=== PATIENT | female | born 2000 | race Two or more races ===

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

== ENCOUNTER 2021-05-27 06:20 | Inpatient (IN) | payer OTHER ==
[~2021-05-27] VITALS: Ht 157.5 cm; Wt 86.3 kg
[2021-05-27] MEDS: LACTATED RINGERS 1,000 ML IV SCH ×6 (09:25→23:00)
[2021-05-27] MEDS ORDERED: FENTANYL PF 100 MCG/2ML IVPush PRN (09:30)
[2021-05-27] MEDS ORDERED: TERBUTALINE 1 MG/ML, 1ML IVPush PRN (09:30)
[2021-05-27] MEDS ORDERED: OXYTOCIN 30U/ 0.9% NaCL 500ML 500 ML IV ONE (09:30)
[2021-05-27] MEDS ORDERED: D5%-LACTATED RINGERS 1,000 ML IV SCH (09:30)
[2021-05-27] MEDS ORDERED: CALCIUM CARBONATE 500 MG TAB.CHEW PO PRN ×2 (09:30→23:00)
[2021-05-27] MEDS ORDERED: ONDANSETRON 2MG/ML, 2ML IVPush PRN ×2 (09:30→23:00)
[2021-05-27] MEDS ORDERED: TERBUTALINE 1 MG/ML, 1ML SQ PRN (09:30)
[2021-05-27 09:40] LABS: BASOPHILS % (AUTO) 0 % (0-1); EOSINOPHILS % (AUTO) 0 % (1-7); LYMPHOCYTES % (AUTO) 13 % (22-44); MEAN CORPUSCULAR HEMOGLOBIN 25.4 pg (27.0-34.8); MEAN PLATELET VOLUME 9.4 fL (7.4-10.4); MONOCYTES % (AUTO) 8 % (2-9); NEUTROPHILS % (AUTO) 79 % (42-75); PLATELET COUNT 296 x10^3/uL (130-400); RED CELL DISTRIBUTION WIDTH 15.5 % (9.6-15.2)
[2021-05-27] MEDS ORDERED: LIDOCAINE 1%, 20ML ONE (09:43)
[2021-05-27] MEDS ORDERED: MISOPROSTOL 200 MCG TABLET ONE (09:43)
[2021-05-27] MEDS ORDERED: NEWBORN KIT ONE (09:43)
[2021-05-27] MEDS ORDERED: OXYTOCIN 30U/ 0.9% NaCL 500ML 500 ML ONE (09:43)
[2021-05-27] MEDS ORDERED: FENTANYL PF 100 MCG/2ML ONE ×3 (09:43→21:46)
[2021-05-27 09:51] LABS: MICROSCOPIC INDICATED
[2021-05-27 09:55] VITALS: BP 139/79
[2021-05-27] MEDS ORDERED: PLEASE ENTER HEIGHT AND WEIGHT MC SCH (10:00)
[2021-05-27] MEDS ORDERED: FENTANYL/BUPIV./NS/PF 250 ML EPIDCONT ONE (10:32)
[2021-05-27] MEDS ORDERED: BUPIVACAINE 0.25% ONE (10:33)
[2021-05-27] MEDS ORDERED: OXYTOCIN 30U/ 0.9% NaCL 500ML 500 ML IV PRN (13:00)
[2021-05-27] MEDS ORDERED: METOCLOPRAMIDE 5 MG/ML, 2ML ONE (21:28)
[2021-05-27] MEDS ORDERED: SUCCINYLCHOLINE 20 MG/ML, 10ML ONE (21:29)
[2021-05-27] MEDS ORDERED: OXYTOCIN 10 UNITS/ML, 1ML ONE (21:29)
[2021-05-27] MEDS ORDERED: PROPOFOL 10 MG/ML, 20ML ONE (21:29)
[2021-05-27] MEDS ORDERED: DEXAMETHASONE 4 MG/ML, 1ML ONE (21:29)
[2021-05-27] MEDS ORDERED: ONDANSETRON 2MG/ML, 2ML ONE (21:29)
[2021-05-27] MEDS ORDERED: EPHEDRINE 50 MG/ML, 1ML ONE (21:29)
[2021-05-27] MEDS ORDERED: KETOROLAC 30 MG/1 ML ONE (21:29)
[2021-05-27] MEDS ORDERED: PHENYLEPHRINE 10 MG/ML ONE (21:29)
[2021-05-27] MEDS ORDERED: CEFAZOLIN 1,000 MG ONE (21:29)
[2021-05-27] MEDS ORDERED: CEFAZOLIN PMX 1GM/50ML 50 ML IVPB ONE (21:30)
[2021-05-27] MEDS ORDERED: SODIUM CITRATE/CITRIC ACID 30 ML UDC PO ONE (21:30)
[2021-05-27] MEDS ORDERED: CLINDAMYCIN PMX 900MG/50ML 50 ML IVPB ONE (21:30)
[2021-05-27] MEDS ORDERED: METOCLOPRAMIDE 5 MG/ML, 2ML IV ONE (21:30)
[2021-05-27] MEDS ORDERED: morphine SULFATE/PF 0.5 MG/ML, 10ML ONE (21:58)
[2021-05-27] MEDS: OXYTOCIN 30U/ 0.9% NaCL 500ML 500 ML IV SCH (22:41)
[2021-05-27] MEDS ORDERED: HYDROmorphone 2 MG/ML, 1ML IVPush PRN (23:00)
[2021-05-27] MEDS ORDERED: EPHEDRINE 50 MG/ML, 1ML IVPush PRN (23:00)
[2021-05-27] MEDS ORDERED: MISOPROSTOL 200 MCG TABLET PR PRN (23:00)
[2021-05-27] MEDS ORDERED: OXYcodone/APAP 5/325MG TABLET PO PRN (23:00)
[2021-05-27] MEDS ORDERED: PROMETHAZINE 25 MG/ML, 1ML IV PRN (23:00)
[2021-05-27] MEDS ORDERED: HYDROcodone/APAP 7.5-325MG/15ML UDC PO PRN (23:00)
[2021-05-27] MEDS ORDERED: hydrALAzine 20 MG/ML, 1ML IV PRN (23:00)
[2021-05-27] MEDS ORDERED: MIDAZOLAM 1 MG/ML, 2ML IV PRN (23:00)
[2021-05-27] MEDS ORDERED: LABETALOL 5MG/ML, 20ML IV PRN (23:00)
[2021-05-27] MEDS ORDERED: ACETAMINOPHEN 325 MG TABLET PO PRN (23:00)
[2021-05-27] MEDS ORDERED: MEASLES,MUMPS&RUBELLA VACC/PF 0.5 ML SQ-VACC PRN (23:00)
[2021-05-27] MEDS ORDERED: METOPROLOL 1 MG/ML, 5ML IV PRN (23:00)
[2021-05-27] MEDS ORDERED: ONDANSETRON 2MG/ML, 2ML IV PRN (23:00)
[2021-05-27] MEDS ORDERED: MEPERIDINE/PF 25MG/0.5ML IVPush PRN (23:00)
[2021-05-27] MEDS ORDERED: OXYcodone 5 MG/5 ML ORAL.SOL UDC PO PRN (23:00)
[2021-05-27] MEDS ORDERED: ALBUTEROL SULFATE 2.5 MG/3 ML NPPB PRN (23:00)
[2021-05-27] MEDS ORDERED: FENTANYL PF 100 MCG/2ML IV PRN (23:00)
[2021-05-27] MEDS: OXYcodone/APAP 5/325MG TABLET PO PRN (23:12)
[2021-05-27 23:30] VITALS: BP 121/82
[2021-05-28 04:00] VITALS: BP 106/68
[2021-05-28] MEDS: KETOROLAC 30 MG/1 ML IV SCH ×4 (04:32→22:17)
[2021-05-28] MEDS: LACTATED RINGERS 1,000 ML IV SCH ×6 (07:00→23:00)
[2021-05-28 07:45] VITALS: BP 121/75
[2021-05-28] MEDS: DOCUSATE 100 MG CAPSULE PO PRN ×2 (08:25→20:12)
[2021-05-28] MEDS: PRENATAL VIT/IRON/FA 1 EACH TABLET PO SCH (08:25)
[2021-05-28] MEDS: SIMETHICONE 80 MG CHEW TAB PO PRN (08:28)
[2021-05-28] MEDS: OXYTOCIN 30U/ 0.9% NaCL 500ML 500 ML IV SCH ×2 (09:00→19:00)
[2021-05-28 12:22] VITALS: BP 122/67
[2021-05-28 20:00] VITALS: BP 120/78
[2021-05-28] MEDS: OXYcodone/APAP 5/325MG TABLET PO PRN (20:13)
[2021-05-29] MEDS: OXYcodone/APAP 5/325MG TABLET PO PRN ×2 (00:55→05:45)
[2021-05-29 01:00] VITALS: BP 118/64
[2021-05-29 01:08] LABS: BASOPHILS % (AUTO) 0 % (0-1); EOSINOPHILS % (AUTO) 1 % (1-7); LYMPHOCYTES % (AUTO) 20 % (22-44); MEAN CORPUSCULAR HEMOGLOBIN 25.8 pg (27.0-34.8); MEAN CORPUSCULAR HGB CONC 33.2 g/dL (32.4-35.8); MEAN PLATELET VOLUME 9.2 fL (7.4-10.4); MONOCYTES % (AUTO) 9 % (2-9); NEUTROPHILS % (AUTO) 71 % (42-75); PLATELET COUNT 272 x10^3/uL (130-400); RED BLOOD COUNT 3.31 x10^6/uL (3.82-5.3); RED CELL DISTRIBUTION WIDTH 15.8 % (9.6-15.2)
[2021-05-29] MEDS: LACTATED RINGERS 1,000 ML IV SCH ×8 (01:30→23:00)
[2021-05-29] MEDS: OXYTOCIN 30U/ 0.9% NaCL 500ML 500 ML IV SCH ×2 (05:00→15:00)
[2021-05-29] MEDS: KETOROLAC 30 MG/1 ML IV SCH ×3 (05:44→17:47)
[2021-05-29 07:35] VITALS: BP 121/71
[2021-05-29] MEDS: SIMETHICONE 80 MG CHEW TAB PO PRN (07:51)
[2021-05-29] MEDS: PRENATAL VIT/IRON/FA 1 EACH TABLET PO SCH (07:51)
[2021-05-29] MEDS: DOCUSATE 100 MG CAPSULE PO PRN ×2 (07:52→23:51)
[2021-05-29] MEDS: FERROUS GLUCONATE 324 MG TABLET PO SCH ×2 (07:52→16:44)
[2021-05-29] MEDS: IBUPROFEN 600 MG TABLET PO PRN ×2 (17:55→23:51)
[2021-05-29 19:15] VITALS: BP 127/84
[2021-05-30] MEDS: LACTATED RINGERS 1,000 ML IV SCH ×5 (01:00→11:00)
[2021-05-30] MEDS: OXYTOCIN 30U/ 0.9% NaCL 500ML 500 ML IV SCH ×2 (01:00→11:00)
[2021-05-30] MEDS: IBUPROFEN 600 MG TABLET PO PRN (05:53)
[2021-05-30 07:00] VITALS: BP 134/87
[2021-05-30] MEDS: FERROUS GLUCONATE 324 MG TABLET PO SCH (08:00)
[2021-05-30] MEDS: PRENATAL VIT/IRON/FA 1 EACH TABLET PO SCH (08:20)
[2021-05-30] MEDS: DOCUSATE 100 MG CAPSULE PO PRN (08:21)
== END 2021-05-30 15:05 | disposition home or self-care (01) | DRG 788 ==
LOC: LDOP 06:20 → LDIP 09:12 → 2NW 23:35
PROVIDERS: ADMIT Obstetrics & Gynecology Maternal & Fetal Medicine; ATTEND Obstetrics & Gynecology Maternal & Fetal Medicine
PROC: 10D00Z1 Extraction of Products of Conception, Low, Open Approach (ICD-10-PCS; principal; 2021-05-27)
PROC: 3E0134Z Introduction of Serum, Toxoid and Vaccine into Subcutaneous Tissue, Percutaneous Approach (ICD-10-PCS; 2021-05-29)
DX: O77.0 Labor and delivery complicated by meconium in amniotic fluid (principal); O76 Abnormality in fetal heart rate and rhythm complicating labor and delivery; Z37.0 Single live birth; Z3A.40 40 weeks gestation of pregnancy; D50.9 Iron deficiency anemia, unspecified; O99.03 Anemia complicating the puerperium; Z23 Encounter for immunization; Z20.822 Contact with and (suspected) exposure to COVID-19
CPT/HCPCS: 36415; 81001; 85025; 86592; 86850; 86900; 87086; 87635; 90707; G0378; J0690; J1100; J1885; J2274; J2405; J2704; J3010; J0330; J2370; J2590; J2765; J7120